=== PATIENT | female | born 1985 | race Caucasian/White ===

== ENCOUNTER 2021-01-23 10:36 | Emergency (ER) | payer BC, SELFPAY ==
--- NOTE | ~2021-01-23 | CT_ITS ---
EXAMINATION: CT abdomen pelvis wo con DATE: 01/23/2021 12:54 INDICATION: Left flank pain and hematuria TECHNIQUE: Computed tomography (CT) of the abdomen and pelvis was performed without intravenous contr ast. The dose-length product (DLP) was 162.79 mGy-cm. Automated exposure control and iterative recons truction technique were employed. COMPARISON: None FINDINGS: The lung bases are clear. The heart size is normal. The liver, spleen, pancreas, gallbladde r, and adrenal glands are normal. There is a 3 mm nonobstructing stone of the left kidney lower pole. The right kidney is unremarkable. There is a 2 mm left pelvic calcification near the expected locati on of the left distal ureter. No pathologically enlarged abdominal or pelvic lymph nodes are identifi ed. There is no free intraperitoneal gas or evidence of bowel obstruction. The appendix is unremarkab le. IMPRESSION: 1. 2 mm left pelvic calcification at the expected location of the left distal ureter. No hydroureter or hydronephrosis. 2. 3 mm nonobstructing left kidney stone. Reviewed, dictated and finalized at location A. IMPRESSION: 1. 2 mm left pelvic calcification at the expected location of the left distal u reter. No hydroureter or hydronephrosis. 2. 3 mm nonobstructing left kidney stone.
--- NOTE | ~2021-01-23 | XR_ITS ---
EXAMINATION: XR abdomen/kub 1V INDICATION: Left distal ureteral stone and left flank pain TECHNIQUE: Supine view of the abdomen is obtained COMPARISON: CT from today FINDINGS: A 2 mm calcification is seen in left pelvis at the expected location of the left distal ure ter. There is a 3 mm stone in the left kidney lower pole. A left pelvic phlebolith is noted. The sara l gas pattern is normal. IMPRESSION: 1. 2 mm calcification projecting at the expected location of the left distal ureter. Reviewed, dictated and finalized at location A. IMPRESSION: 1. 2 mm calcification projecting at the expected location of the left distal ur eter.
--- NOTE | ~2021-01-23 | US_ITS ---
EXAMINATION: US pelvic complete w TV DATE: 01/23/2021 12:22 INDICATION: Pelvic pain TECHNIQUE: Multiple transabdominal and endovaginal sonographic images of the pelvis were obtained. COMPARISON: None. FINDINGS: The uterus measures 7.5 x 4.0 x 4.2 cm. The endometrial complex measures 4 mm. The right ov asaf measures 2.8 x 1.7 x 2.2 cm. There is a 1.4 x 1.1 x 1.2 cm hypoechoic lesion of the right ovary. The left ovary measures 2.5 x 1.7 x 1.9 cm. There is normal vascular flow in the ovaries. There is no free fluid in the pelvis. IMPRESSION: 1. No sonographic correlate for the patient's symptoms. 2. Small hypoechoic lesion of the right ovary, likely hemorrhagic cyst or endometrioma. Follow-up ult rasound in 6-12 weeks is recommended. Reviewed, dictated and finalized at location A. IMPRESSION: 1. No sonographic correlate for the patient's symptoms. 2. Small hypoechoic lesion of the right ovary, likely hemorrhagic cyst or endom etrioma. Follow-up ultrasound in 6-12 weeks is recommended.
[2021-01-23 10:43] VITALS: BP 150/105; PULSE 88; RESP 18; TEMP 36.9; O2SAT 100
[2021-01-23 11:00] LABS: Basophils Percent Auto 0.6 % (0.2-1.2); Eosinophils Absolute Auto 0.1 K/mm3 (0-0.3); Eosinophils Percent Auto 1.8 % (0-4.4); Hemoglobin 14.2 g/dL (12.0-15.0); Immature Granulocyte Absolute 0.01 K/mm3 (0.00-0.031); Immature Granulocyte Percent A 0.2 % (0-0.5); Lymphocytes Absolute Auto 1.95 K/mm3 (0.9-3.2); Lymphocytes Percent Auto 35.9 % (18.3-44.2); Mean Corpuscular HGB Conc 32.3 g/dl (32-36); Mean Corpuscular Hemoglobin 30.1 pg (26-34); Mean Corpuscular Volume 93.4 fl (80-100); Mean Platelet Volume 10.9 fl (7.4-10.4); Monocytes Absolute Auto 0.4 K/mm3 (0.1-0.6); Monocytes Percent Auto 6.4 % (2.6-8.5); Neutrophils Percent Auto 55.1 % (45.5-73.1); Platelet Count Result 173 k/mm3 (150-375); Red Blood Count 4.71 M/mm3 (4.2-5.4); Red Cell Distribution Width 12.1 % (11.5-14.5); White Blood Count 5.4 K/mm3 (4.5-10.0)
[2021-01-23] MEDS: KETOROLAC 30 MG/ML VIAL (*BKC) IV PUSH (11:00)
[2021-01-23 11:09] LABS: Anion Gap 11 mmol/L (8-16); Blood Urea Nitrogen 13 mg/dL (7-17); Calcium 9.8 mg/dL (8.4-10.2); Carbon Dioxide 25 mmol/L (22-30); Chloride 106 mmol/L (98-107); Estimated CRCL calculation 85 ml/min; Estimated Glomerular Filt Rate > 60; Glucose 104 mg/dL (65-105); Potassium 3.7 mmol/L (3.4-5.0); Sodium 142 mmol/L (137-145)
[2021-01-23 11:10] LABS: Add Urine Microscopic? YES; Appearance Urine Clear (Clear); Bilirubin Urine Negative (Negative); Blood Urine 2+ (Negative); Color Urine Yellow (Yellow); Glucose Urine UA Negative (Negative); Ketones Urine Negative (Negative); Leukocyte Esterase Ur Negative LEU/UL (Negative); Mucus Urine Heavy /lpf; Nitrate Urine Negative (Negative); Protein Urine Negative (Negative); RBC Urine 21-50 /hpf (0-2); Specific Grav Ur 1.025 (1.001-1.035); Squamous Epithelial Cell Urine Rare /hpf (Few); Urobilinogen Urine Negative mg/dL (<2.0); WBC Urine 0-3 /hpf
[2021-01-23] MEDS: MORPHINE SULFATE (*CRX) 4 MG/ML INJ IV PUSH (12:02)
[2021-01-23] MEDS: ONDANSETRON INJ 4 MG/2 ML VIAL IV PUSH (12:02)
--- NOTE | 2021-01-23 12:02 | ED.BACK ---
HPI - Back Pain/Injury General Chief Complaint: Back Pain/Injury Stated Complaint: left flank pain Time Seen by Provider: 01/23/21 11:29 Source: patient Mode of arrival: ambulatory Limitations: no limitations History of Present Illness HPI Narrative: This is a 35 year old female that presents to the ER for left sided pelvic pain since early this morning. Reports started to radiate to the left flank about an hour ago. Pain is sharp and constant. Associated with nausea. Does report history of chronic pelvic pain and ovarian cysts. Pain radiating to her left flank was new for her which prompted her to be seen. Denies fever, vomiting, dysuria or hematuria. Related Data Allergies Allergy/AdvReac Type Severity Reaction Status Date / Time Penicillins Allergy Unknown Rash Verified 01/23/21 10:48 sulfamethoxazole Allergy Unknown Rash Verified 01/23/21 10:48 trimethoprim Allergy Unknown Rash Verified 01/23/21 10:48 vancomycin Allergy Unknown Rash Verified 01/23/21 10:48 Review of Systems Review of Systems: Narrative: CONSTITUTIONAL: Denies fever GASTROINTESTINAL: Reports abdominal pain, nausea. Denies vomiting, or diarrhea. GENITOURINARY: Denies dysuria or hematuria. All systems reviewed & are unremarkable except as noted in HPI and below PMFSH Surgical History Surgical History (Updated 01/23/21 @ 12:07 by Michelle Vallecillo PA-C) History of section Social History Social History (Updated 01/23/21 @ 12:07 by Michelle Vallecillo PA-C) Substance use: never Gender identity (if verbalized by the patient): Female Exam Narrative: Exam Narrative: GENERAL: Well-appearing, well-nourished, and in no acute distress. HEAD: Normocephalic, atraumatic. EYES: EOMI. CHEST: Clear to auscultation. No respiratory distress. No wheezes rales or rhonchi HEART: Regular rate and rhythm. No murmur heard. Normal peripheral pulses. ABDOMEN: Soft, nondistended, normal active bowel sounds. Mild tenderness to palpation of the left lower quadrant, without guarding. No CVA tenderness EXTREMITIES: Normal range of motion. No edema. SKIN: Warm, dry, no rash. NEURO: No focal deficits. Alert and oriented x3. PSYCH: Normal mood and affect Course Vital Signs Vital signs: Vital Signs Temperature 98.5 F 01/23/21 10:43 Pulse Rate 88 01/23/21 10:43 Respiratory Rate 18 01/23/21 10:43 Blood Pressure 150/105 H 01/23/21 10:43 Pulse Oximetry 100 01/23/21 10:43 Temperature 98.5 F 01/23/21 10:43 Pulse Rate 60 01/23/21 12:38 Respiratory Rate 20 01/23/21 12:38 Blood Pressure 100/67 01/23/21 12:38 Pulse Oximetry 100 01/23/21 12:38 MDM - Back Pain/Injury MDM Narrative Medical decision making narrative: Patient presents to the emergency department for left lower quadrant and left flank pain. CBC and metabolic panel without concerning findings. UA with red blood cells. Bedside test is negative. Pelvic ultrasound is without acute findings. CT scan abdomen and pelvis shows a 2 mm left likely distal ureteral stone. Abdomen x-ray positively identifies this stone. Patient and family updated on case findings. She reports improvement in pain and feels ready for discharge home. Will be started on Flomax and given pain medication as needed. She will be given urology for follow-up and instructed on straining her urine. She was given warnings to return to the ER Lab Data Attestation: I reviewed the patient's lab results. Result diagrams: 01/23/21 10:52 01/23/21 10:52 Labs: Lab Results 01/23/21 01/23/21 01/23/21 Range/Units 10:51 10:52 10:52 WBC 5.4 (4.5-10.0) K/mm3 RBC 4.71 (4.2-5.4) M/mm3 Hgb 14.2 (12.0-15.0) g/dL Hct 44.0 (37.0-47.0) % MCV 93.4 (80-100) fl MCH 30.1 (26-34) pg MCHC 32.3 (32-36) g/dl RDW 12.1 (11.5-14.5) % Plt Count 173 (150-375) k/mm3 MPV 10.9 H (7.4-10.4) fl Immature Gran % (Auto) 0.2 (0-0.5) % Neut % (Auto)
[2021-01-23 12:38] VITALS: BP 100/67; PULSE 60; RESP 20; O2SAT 100
[2021-01-23 14:18] VITALS: BP 105/88; PULSE 60; RESP 20; O2SAT 100
== END 2021-01-23 14:19 | disposition home or self-care (01) ==
PROVIDERS: Emergency Provider Emergency Medicine; PCP Nurse Practitioner
DX: N20.2 Calculus of kidney with calculus of ureter (principal)
CPT/HCPCS: 36415; 74018; 74176; 76830; 76856; 80048; 81001; 81025; 85025; 96365; 96375; 99284; J0131; J1885; J2270; J2405

== ENCOUNTER 2022-02-04 18:02 | Emergency (ER) | payer BC, SELFPAY ==
[2022-02-04 18:08] VITALS: BP 158/93; PULSE 87; RESP 18; TEMP 36.9; O2SAT 100
[2022-02-04 18:48] LABS: Basophils Percent Auto 0.6 % (0.2-1.2); Eosinophils Absolute Auto 0.1 K/mm3 (0-0.3); Eosinophils Percent Auto 1.7 % (0-4.4); Hematocrit 41.3 % (37.0-47.0); Hemoglobin 13.4 g/dL (12.0-15.0); Immature Granulocyte Absolute 0.01 K/mm3 (0.00-0.031); Immature Granulocyte Percent A 0.2 % (0-0.5); Lymphocytes Absolute Auto 1.62 K/mm3 (0.9-3.2); Lymphocytes Percent Auto 31.2 % (18.3-44.2); Mean Corpuscular HGB Conc 32.4 g/dl (32-36); Mean Corpuscular Hemoglobin 29.7 pg (26-34); Mean Corpuscular Volume 91.6 fl (80-100); Monocytes Absolute Auto 0.3 K/mm3 (0.1-0.6); Monocytes Percent Auto 6.6 % (2.6-8.5); Neutrophils Absolute Auto 3.1 K/mm3 (1.3-6.7); Neutrophils Percent Auto 59.7 % (45.5-73.1); Platelet Count Result 166 k/mm3 (150-375); Red Blood Count 4.51 M/mm3 (4.2-5.4); White Blood Count 5.2 K/mm3 (4.5-10.0)
--- NOTE | 2022-02-04 18:48 | ED.EXTPRO ---
HPI - Extremity Problem General Chief complaint: Extremity Problem,Nontraumatic Stated complaint: blue finger tips Time Seen by Provider: 02/04/22 18:18 Source: patient History of Present Illness HPI Narrative: Patient presents with pale fingertips right worse than left. Patient reports she was washing dishes and noted discoloration in her fingers felt they were blue. She was also describes paresthesias and a pressure sensation in her hands has not had symptoms like this for she was concerned she came to ER for evaluation. Denies any chest pain or shortness of breath. Denies any lightheadedness or dizziness denies any nausea or vomiting she denies any implantable devices she denies any recent hospitalizations or surgeries denies any prior history of blood clots Related Data Allergies Allergy/AdvReac Type Severity Reaction Status Date / Time Penicillins Allergy Unknown Rash Verified 01/23/21 10:48 sulfamethoxazole Allergy Unknown Rash Verified 01/23/21 10:48 trimethoprim Allergy Unknown Rash Verified 01/23/21 10:48 vancomycin Allergy Unknown Rash Verified 01/23/21 10:48 Review of Systems Review of Systems: CONSTITUTIONAL: Denies fever, chills, or sweats. EYES: Denies visual changes, redness, or discharge. ENT: Denies rhinorrhea, congestion, sore throat, or otalgia. CARDIOVASCULAR: Denies chest pain, palpitations, or edema. RESPIRATORY: Denies cough or dyspnea. GASTROINTESTINAL: Denies abdominal pain, nausea, vomiting, or diarrhea. GENITOURINARY: Denies dysuria or hematuria. SKIN: Denies rash or itching. MUSCULOSKELETAL: Denies back pain, joint pain, or myalgia. NEUROLOGIC: Denies headache, numbness, dizziness, or weakness. PSYCHIATRIC: Denies anxiety or depression. All systems reviewed & are unremarkable except as noted in HPI and below PMFSH Surgical History Surgical History History of section Social History Social History Substance use: never Gender identity (if verbalized by the patient): Female Exam Narrative: GENERAL: Well-appearing, well-nourished, and in no acute distress. HEAD: Normocephalic, atraumatic. EYES: PERRLA and EOMI. ENT: Nares clear, no rhinorrhea or epistaxis. Mucous membranes moist. NECK: Supple. No masses. No JVD EXTREMITIES: Normal range of motion. 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 NEURO: No focal deficits. Alert and oriented x3. PSYCH: Normal mood and affect. Course Vital Signs Vital signs: Vital Signs Temperature 36.9 C 02/04/22 18:08 Pulse Rate 87 02/04/22 18:08 Respiratory Rate 18 02/04/22 18:08 Blood Pressure 158/93 H 02/04/22 18:08 Pulse Oximetry 100 02/04/22 18:08 Oxygen Delivery Room Air 02/04/22 18:08 Temperature 36.9 C 02/04/22 18:08 Pulse Rate 87 02/04/22 18:08 Respiratory Rate 18 02/04/22 18:08 Blood Pressure 158/93 H 02/04/22 18:08 Pulse Oximetry 100 02/04/22 18:08 Oxygen Delivery Room Air 02/04/22 18:08 MDM - Extremity (Nontraumatic) MDM Narrative Medical decision making narrative: H&P as above, vss, pt looks clinically well, exam slightly pale hand, labs clinically unremarkable, additional labs/img considered, symptomatic relief available as needed, patient treated with warm pack on reevaluation pt continues to looks clinically well with improvement in her symptoms Suspect Raynaud's syndrome, dns DVT or arterial thrombosis necrotizing soft tissue infection major neurovascular compromise plan to tx/monitor as op w/ pcm f/u findings/plan discussed with pt, pt agree/comfortable with plan, return precautions given Lab Data Result diagrams: 02/04/22 18:40 02/04/22 18:40 Labs: Lab Results 02/04/22 02/04/22 02/04/22 Range/Units 18:4
[2022-02-04 19:05] LABS: Alanine Aminotransferase 18 U/L (6-35); Albumin Level 4.8 g/dL (3.5-5.1); Alkaline Phosphatase 43 U/L (38-126); Anion Gap 9 mmol/L (8-16); Aspartate Amino Transferase 23 U/L (14-36); Bilirubin,Total 1.5 mg/dL (0.2-1.3); Blood Urea Nitrogen 21 mg/dL (7-17); CRP < 0.5 mg/dL (<1.0); Calcium 8.8 mg/dL (8.4-10.2); Carbon Dioxide 24 mmol/L (22-30); Chloride 105 mmol/L (98-107); Estimated CRCL calculation 84 ml/min; Estimated Glomerular Filt Rate > 60; Glucose 147 mg/dL (65-110); Potassium 3.6 mmol/L (3.4-5.0); Sodium 138 mmol/L (137-145)
[2022-02-04 19:28] LABS: Erythrocyte Sedimentation Rate 5 mm/hr (0-20)
== END 2022-02-04 20:07 | disposition home or self-care (01) ==
PROVIDERS: Emergency Provider Emergency Medicine; PCP Nurse Practitioner
DX: R23.0 Cyanosis (principal)
CPT/HCPCS: 36415; 80053; 84443; 85025; 85652; 86038; 86140; 99283